=== PATIENT | female | born 1960 | race Caucasian/White ===

== ENCOUNTER 2019-01-02 06:42 | Inpatient (IN) ==
--- NOTE | 2018-12-12 13:22 | Anesthesiology Consultation ---
Date of Service December 12, 2018 Assessment & Plan (1) Encounter for pre-operative examination: Patient s/p vagal nerve stimulator/replacement for refractory depression ([facility]; patient advised to bring remote AM DOS; Juan Jose Goldberg/OR made aware). Patient has had subsequent hoarseness since [place] [facility] [place] has been evaluated by ENT; patient diagnosed with left unilateral vocal cord paralysis. Per preop CXR: "Battery pack of the left chest is noted with single lead projecting about the left medial upper chest." Discussed with Dr. De Jesus- nothing further from our perspective regarding this prior to surgery. Juan Jose Goldberg spoke with [facility] who recommended patient followup with provider that monitors VNS after surgery (within few weeks following s urgery) to ensure VNS working properly post-op (left message with patient to make them aware). ENT: 12/25/18: Left vocal cord paralysis after vagal nerve stimulator [re]placement. Options of observation vs. vocal cord injection/medialization with prolaryn gel (temporary) as options. "She is not yet 1 yr out from the onset of symptoms. Thus, there is a small chance the nerve may recover spontaneously." Patient considering vocal cord injection- ENT aware of upcoming TKA and recommends waiting until after TKA for vocal cord injections. PCP: 11/14/18: "She is able to perform adequate amount of METs without cardiac symptoms. She is medically optimized for surgery and requires no further workup. Chart Review Chart Review: Acceptable Risk for Surgery and Patient seen in Pre Admission Testing Teaching & Discussion Pre-Anesthesia Teaching/Discussion Notes: Instructed NPO after midnight before surgery,except medications with 15 cc of water. Medication instructions pro vided according to the PAT guidelines. History Surgery Operation Date: 01/02/19 09:25 Proposed Procedures p Right Total Knee Arthroplasty - Jurgen Howard MD Height/Weight Height: 5 ft 6 in Weight: 102.4 kg Allergies Allergy/AdvReac Type Severity Reaction Status Date / Time morphine Allergy Severe PRURITIS Verified 01/02/19 07:48 Medications Home Medications Medication Instructions Recorded Confirmed Last Taken aripiprazole 5 mg PO HS 12/12/18 01/02/19 01/01/19 19:00 estradiol 2 mg PO QAM 12/12/18 01/02/19 01/02/19 05:00 glucos sul 1APm-zho-bdpnv-C-Mn 2 cap PO QAM 12/12/18 01/02/19 12/19/18 07:00 [Glucosamine Chondroitin] levothyroxine 100 mcg PO QAM 12/12/18 01/02/19 01/02/19 05:00 lorazepam 2 mg PO HS 12/12/18 01/02/19 01/01/19 19:00 multivitamin 1 tab PO QAM 12/12/18 01/02/19 01/01/19 07:00 olanzapine 5 mg PO HS 12/12/18 01/02/19 01/01/19 19:00 olanzapine 20 mg PO HS 12/12/18 01/02/19 01/01/19 19:00 omega 5-ojo-goh-fish oil [Fish Oil] 2 cap PO QAM 12/12/18 01/02/19 12/19/18 07:00 simvastatin 40 mg PO 12/12/18 01/02/19 01/01/19 19:00 venlafaxine 450 mg PO QA 12/12/18 01/02/19 01/02/19 05:00 Active Medications Generic Name Dose Route Start Last Admin Trade Name Freq PRN Reason Stop Dose Admin Acetaminophen 1,000 mg 01/02/19 06:00 01/02/19 08:09 Tylenol PO 01/02/19 18:00 1,000 mg PREOP LEONOR Administration Celecoxib 200 mg 01/02/19 06:00 01/02/19 08:09 Celebrex PO 01/02/19 18:00 200 mg PREOP LEONOR Administration Dexamethasone 8 mg 01/02/19 06:00 01/02/19 08:08 Decadron PO 01/02/19 18:00 8 mg PREOP LEONOR Administration Famotidine 20 mg 01/02/19 06:00 01/02/19 08:09 Pepcid PO 01/02/19 18:00 20 mg PREOP LEONOR Administration Gabapentin 600 mg 01/02/19 06:00 01/02/19 08:08 Neurontin PO 01/02/19 18:00 600 mg PREOP LEONOR Administration Lactated Ringer's 1,000 mls @ 15 mls/hr 01/02/19 06:00 01/02/19 08:15 Lr IV 01/02/19 18:00 15 mls/hr .Q24H LEONOR Administration Metoclopramide HCl 10 mg 01/02/19 06:00 01/02/19 08:09 Reglan PO 01/02/19 18:00 10 mg PREOP LEONOR Administration Past Medical History Medical History Anxiety Depression H/O SUICIDAL ATTEMPT= NO CURRENT/RECENT ISSUES Hyperlipidemia Hypothyroidism Osteoarthritis CKD (chronic kidney disease) STAGE III History of blood transfusion INFANCY Obesity Exercise / Class Metabolic Activity II 4-5 Yardwork/Stairs/Walk up hill Past Family History Family History Other No pertinent family history Past Surgical History Surgical History H/O: hysterectomy WITH BSO History of tonsillectomy S/P placement of VNS (vagus nerve stimulation) device REPLAC[place]= [place] [facility] [place]) Past Anesthesia History No Family Hx of Anesthesia Complications and Other Patient has had hoarseness since vagal nerve stimulator replacement for depression 06[place]2018 [place] [facility] [place] Patient states she was seen by ENT and found to have unilateral left vocal cord paralysis s/p VNS placement. History of PONV No Hx of PONV and No Hx of Motion Sickness Social History Smoking Status: Former smoker tobacco type: cigarettes Do You Dip or Chew Tobacco: No Smoking End Date: QUIT 3 YEARS AGO; HX 1 PPD X 25 YEARS Hx Alcohol Use: No Hx Substance Use: No substance use type: does not use Review of Systems Patient denies chest pain, shortness of breath, dyspnea on exertion, reflux, cough, wheezing, palpitations. Physical Exam Vital Signs Last Vital Signs Temp 36.6 C 01/02/19 07:36 Pulse 64 01/02/19 07:36 Resp 18 01/02/19 07:36 BP 115/59 L 01/02/19 07:36 Pulse Ox 96 01/02/19 07:36 VITALS BP 122/79 P 76 TEMP 97.5 SP02 97%RA RESP 16 PHYSICAL Full neck and c-spine range of motion. Full TMJ range of motion. TMD 3 finger breaths Mallampati Score 1 Dentition: intact Lungs: clear throughout to auscultation Cardiac: regular rate and rhythm, no murmurs noted Spine: normal Carotid arteries: negative bruit Extremities: no edema Scar over left upper chest/left collarbone (likely 2/2 generator from vagal nerve stimulator) Testing Electrocardiogram Date: 11/14/18 NSR at 72bpm. Low voltage QRS. Chest X-Ray Date: 12/12/18 Findings: + NAD Battery pack of the left chest is noted with single lead projecting about the left medial upper chest. Laboratory Results 12/12/18 13:42 PT 11.1 Seconds (9.0-12.0) 12/12/18 13:42 INR 1.1 (0.9-1.1) 12/12/18 13:42 APTT 26.5 Seconds (21.0-31.0) 12/12/18 13:42 5.4 % (4.5-5.6) 12/12/18 13:42 Yellow 12/12/18 13:42 Clear (Clear) 12/12/18 13:42 5.0 (4.5-7.5) 12/12/18 13:42 Ur Specific Brandon 1.016 (1.000-1.030) 12/12/18 13:42 Negative (Negative) 12/12/18 13:42 Negative (Negative) 12/12/18 13:42 Negative (Negative) 12/12/18 13:42 Negative (Negative) 12/12/18 13:42 Ur Leukocyte Esterase Negative (Negative) 12/12/18 13:42 Blood Type B Positive 12/12/18 13:42 Antibody Screen NEGATIVE 12/12/18 13:42 11/14/18 SODIUM 143 POTASSIUM 4.5 CHLORIDE 105 CO2 24 BUN 16 CREATININE 1.0 GLUCOSE 100 Due to header error, following labs header labels were missin12/12/18 UA negative HGBA1C 5.4%
--- NOTE | 2018-12-12 13:36 | PAT Medication Instructions ---
Medication Instructions Date of Service December 12, 2018 Home Medications aripiprazole 5 mg PO HS estradiol 2 mg PO QAM glucos sul 5BVq-kvh-czanc-C-Mn 2 cap PO QAM levothyroxine 100 mcg PO QAM lorazepam 2 mg PO HS multivitamin 1 tab PO QAM olanzapine 5 mg PO HS olanzapine 20 mg PO HS omega 7-wim-tum-fish oil [Fish Oil] 2 cap PO QAM simvastatin 40 mg PO HS venlafaxine 450 mg PO QAM ASK your surgeon for instructions estradiol 2 mg PO QAM STOP taking 2 weeks before surgery (or as soon as possible if surgery is within 2 weeks) glucos sul 9PCk-rgn-wmlxl-C-Mn 2 cap PO QAM omega 7-lhs-pjh-fish oil [Fish Oil] 2 cap PO QAM DO NOT take the morning of surgery multivitamin 1 tab PO QAM Take morning of surgery With a small sip of water, OTHERWISE NOTHING TO EAT OR DRINK AFTER MIDNIGHT: levothyroxine 100 mcg PO QAM venlafaxine 450 mg PO QAM Take evening before surgery aripiprazole 5 mg PO HS lorazepam 2 mg PO HS olanzapine 5 mg PO HS olanzapine 20 mg PO HS simvastatin 40 mg PO HS Other Notes If you have any questions please call us at [phone] or [phone] or [phone] or [phone]
--- NOTE | 2018-12-12 14:18 | XRay Report ---
XR chest Pre-admission PA/Lat HISTORY: 58 years-old Female pat preoperative exam. No acute chest complaints COMPARISON: Chest radiograph 01/06/2009 TECHNIQUE: PA and lateral views of the chest FINDINGS: The cardiomediastinal and hilar silhouettes are within normal limits. Battery pack of the left chest is noted with single lead projecting about the left medial upper chest. No pneumothorax, pleural effu karen, focal airspace consolidation or overt pulmonary edema. Degenerative changes of the shoulders an d spine. IMPRESSION: No acute process. The above report was generated using voice recognition software. It may contain grammatical, syntax o r spelling errors. Electronically signed by: Yonathan Chiu M.D. 12/12/2018 2:17 PM
[2018-12-12 14:28] LABS: Estimated Average Glucose 108 mg/dl; Hemoglobin A1C 5.4 % (4.5-5.6)
[2018-12-12 14:29] LABS: Appearance Urine Clear (Clear); Basophils # (auto) 0.02 K/uL (0-0.2); Basophils % (auto) 0.4 %; Bilirubin Urine Negative (Negative); Blood Urine Negative (Negative); Color Urine Yellow; Eosinophils # (auto) 0.09 K/uL (0-0.5); Eosinophils % (auto) 1.7 %; Glucose Urine UA Negative (Negative); Hematocrit (blood only) 39.1 % (37-47); Hemoglobin 13.9 g/dL (12.0-16.0); Immature Granulocytes # (auto) 0.01 K/uL (0.00-0.02); Immature Granulocytes % (auto) 0.2 %; Ketones Urine Negative (Negative); Leukocyte Esterase Urine Negative (Negative); Lymphocytes # (auto) 2.05 K/uL (1.2-3.4); Lymphocytes % (auto) 39.2 %; Mean Corpuscular Hgb Conc 35.5 g/dL (32-36); Mean Corpuscular Volume 88.5 fL (80-100); Mean Platelet Volume 9.7 fL (7.4-10.4); Monocytes # (auto) 0.42 K/uL (0.11-0.59); Neutrophils # (auto) 2.64 K/uL (1.4-6.5); Neutrophils % (auto) 50.5 %; Nitrite Urine Negative (Negative); Platelet Count 308 K/uL (130-400); Protein Urine Negative (Negative); RDW Coefficient of Variation 12.1 % (11.5-14.5); RDW Standard Deviation 39.1 fL (36.4-46.3); Red Blood Count 4.42 M/uL (4.2-5.4); Specific Gravity Urine 1.016 (1.000-1.030); Urobilinogen Urine Negative (Negative); White Blood Count 5.23 K/uL (4.8-10.8)
[2018-12-12 14:37] LABS: INR 1.1 (0.9-1.1); Partial Thromboplastin Time 26.5 Seconds (21.0-31.0); Prothrombin Time 11.1 Seconds (9.0-12.0)
--- NOTE | 2018-12-31 21:20 | History & Physical Report ---
Date of Service December 31, 2018 Assessment & Plan (1) Primary osteoarthritis of right knee: Patient has significant osteoarthritis in her knee. She has significant pain and dysfunction with normal daily activities. She has failed conservative measures as above. Treatment options were discussing you would like to proceed with right total knee arthroplasty. Risks, benefits, and alternatives to surgery including but not limited to infection, DVT pain, stiffness, need for revision surgery, damage to blood vessels, damaged nerves, PE, , we're discuss with the patient and they wish to proceed all questions were answered. Will plan on aspirin 81 mg bid for 30 days postoperatively for DVT prophylaxis. Plans will be for home with plans for outpatient physical therapy upon discharge from the hospital. She will follow up in the office postoperatively. History of Present Illness Chief Complaint: Right knee pain Primary Care Provider: Madelaine Betts PA-C Patient is a 58 year old female with PMHx significant for anxiety, hypothryroidism, CKDIII who has a long standing history of right knee pain. She is having difficulty completing normal daily activities due to her pain. She has failed conservative measures including cortisone injections and anti- inflammatories. She is a previous patient of Dr. Rodriguez. She would like to proceed with right knee replacement. Patient denies headaches, sweats, fevers, chills, double vision, blurred vision, cough, sore throat, dysphagia, chest pain, sob, wheezing, n/v/d/c, numbness, tingling, fatigue, urinary symptoms, mood disorders. ROS positive for right knee pain and stiffness. Allergies Allergy/AdvReac Type Severity Reaction Status Date / Time morphine Allergy Severe PRURITIS Unverified 09/10/09 04:03 Home Medications Home Medications Medication Instructions Recorded Confirmed Type aripiprazole 5 mg PO HS 12/12/18 12/12/18 History estradiol 2 mg PO QAM 12/12/18 12/12/18 History glucos sul 3NKh-qsv-uhjim-C-Mn 2 cap PO QAM 12/12/18 12/12/18 History [Glucosamine Chondroitin] levothyroxine 100 mcg PO QAM 12/12/18 12/12/18 History lorazepam 2 mg PO HS 12/12/18 12/12/18 History multivitamin 1 tab PO QAM 12/12/18 12/12/18 History olanzapine 5 mg PO HS 12/12/18 12/12/18 History olanzapine 20 mg PO HS 12/12/18 12/12/18 History omega 4-ouh-xio-fish oil [Fish Oil] 2 cap PO QAM 12/12/18 12/12/18 History simvastatin 40 mg PO HS 12/12/18 12/12/18 History venlafaxine 450 mg PO QAM 12/12/18 12/12/18 History Past Med/Surg History Medical History Anxiety CKD (chronic kidney disease) STAGE III Depression H/O SUICIDAL ATTEMPT= NO CURRENT/RECENT ISSUES History of blood transfusion INFANCY Hyperlipidemia Hypothyroidism Obesity Osteoarthritis Surgical History H/O: hysterectomy WITH BSO History of tonsillectomy S/P placement of VNS (vagus nerve stimulation) device REPLACEMENT= 06/2018 AT [facility] [place] (FOR DEPRESSION) Family History Other No pertinent family history Social History Preferred Language: Persian Communication Ability: Effective Telecommunication Systems Designer Required: No Beliefs That Will Affect Care: None Current Living Situation: Spouse and Family Other Information That Helps Us Care for You: No Feels Safe at Home: Yes Safety Concerns: Feels Safe At This Time Smoking Status: Former smoker Tobacco Type: cigarettes Do You Dip or Chew Tobacco: No Smoking End Date: QUIT 3 YEARS AGO; HX 1 PPD X 25 YEARS Second Hand Exposure: Yes Tobacco Cessation Education Requested by Patient: No Hx Alcohol Use: No Hx Substance Use: No Review of Systems All systems reviewed & are unremarkable except as noted in HPI & below Physical Exam Constitutional: well developed and well nourished; no acute distress Eyes: PERRL, conjunctivae normal, anicteric sclerae ENMT: external ear and nose normal, oropharynx normal Neck: trachea midline, no thyromegaly Respiratory: normal respiratory effort, lungs clear to auscultation Cardiovascular: RRR, no murmur, no edema Musculoskeletal: Right knee-ROM 0-130, mild effusion, tenderness medial joint line, crepitus with ROM, stable to valgus and varus stress tests. Skin: no rashes, warm and dry Neurologic: patellar DTR's 2+ bilat, sensation intact Psychiatric: A+Ox3, euthymic affect Results & Data Laboratory Results Lab Results 12/12/18 12/12/18 12/12/18 Range/Units 13:42 13:42 13:42 WBC 5.23 (4.8-10.8) K/uL RBC 4.42 (4.2-5.4) M/uL Hgb 13.9 (12.0-16.0) g/dL Hct 39.1 (37-47) % MCV 88.5 (80-100) fL MCH 31.4 (25-34) pg MCHC 35.5 (32-36) g/dL RDW Std Deviation 39.1 (36.4-46.3) fL RDW Coeff of Nicky 12.1 (11.5-14.5) % Plt Count 308 (130-400) K/uL MPV 9.7 (7.4-10.4) fL Immature Gran % (Auto) 0.2 % Neut % (Auto) 50.5 % Lymph % (Auto) 39.2 % Stone % (Auto) 8.0 % Eos % (Auto) 1.7 % Baso % (Auto) 0.4 % Immature Gran # (Auto) 0.01 (0.00-0.02) K/uL Neut # (Auto) 2.64 (1.4-6.5) K/uL Lymph # (Auto) 2.05 (1.2-3.4) K/uL Stone # (Auto) 0.42 (0.11-0.59) K/uL Eos # (Auto) 0.09 (0-0.5) K/uL Baso # (Auto) 0.02 (0-0.2) K/uL PT 11.1 (9.0-12.0) Seconds INR 1.1 (0.9-1.1) APTT 26.5 (21.0-31.0) Seconds PTT Ratio 1.0 Estimat Average Glucose mg/dl Hemoglobin A1c (4.5-5.6) % Albumin 3.8 (3.4-5.0) gm/dl Urine Color Urine Appearance (Clear) Urine pH (4.5-7.5) Ur Specific Gregory (1.000-1.030) Urine Protein (Negative) Urine Glucose (UA) (Negative) Urine Ketones (Negative) Urine Blood (Negative) Urine Nitrite (Negative) Urine Bilirubin (Negative) Urine Urobilinogen (Negative) Ur Leukocyte Esterase (Negative) Blood Type Antibody Screen 12/12/18 12/12/18 12/12/18 Range/Units 13:42 13:42 13:42 WBC (4.8-10.8) K/uL RBC (4.2-5.4) M/uL Hgb (12.0-16.0) g/dL Hct (37-47) % MCV (80-100) fL MCH (25-34) pg MCHC (32-36) g/dL RDW Std Deviation (36.4-46.3) fL RDW Coeff of Nicky (11.5-14.5) % Plt Count (130-400) K/uL MPV (7.4-10.4) fL Immature Gran % (Auto) % Neut % (Auto) % Lymph % (Auto) % Stone % (Auto) % Eos % (Auto) % Baso % (Auto) % Immature Gran # (Auto) (0.00-0.02) K/uL Neut # (Auto) (1.4-6.5) K/uL Lymph # (Auto) (1.2-3.4) K/uL Stone # (Auto) (0.11-0.59) K/uL Eos # (Auto) (0-0.5) K/uL Baso # (Auto) (0-0.2) K/uL PT (9.0-12.0) Seconds INR (0.9-1.1) APTT (21.0-31.0) Seconds PTT Ratio Estimat Average Glucose 108 mg/dl Hemoglobin A1c 5.4 (4.5-5.6) % Albumin (3.4-5.0) gm/dl Urine Color Yellow Urine Appearance Clear (Clear) Urine pH 5.0 (4.5-7.5) Ur Specific Gregory 1.016 (1.000-1.030) Urine Protein Negative (Negative) Urine Glucose (UA) Negative (Negative) Urine Ketones Negative (Negative) Urine Blood Negative (Negative) Urine Nitrite Negative (Negative) Urine Bilirubin Negative (Negative) Urine Urobilinogen Negative (Negative) Ur Leukocyte Esterase Negative (Negative) Blood Type B Positive Antibody Screen NEGATIVE Diagnostic Findings Right knee radiographs: Bone on bone medial compartment with osteophyte formation medial femoral condyle and medial tibial plateaus, osteophyte formation patellofemoral joint.
[~2019-01-02 06:42] MED LIST: ACETAMINOPHEN 500 MG TAB PO SCH; BUPIVACAINE 0.5 % 5 MG/1 ML PF 10ML VIAL ONE; CEFAZOLIN 2000MG 2,000 MG/15 ML SYR IV SCH; CeleBREX 200 MG CAP PO SCH; EPINEPHrine INJ 1 MG/ML AMP ONE; FAMOTIDINE 20 MG TAB PO SCH; GABAPENTIN 300 MG x 2 PO SCH; LR 500ML BOLUS, THEN 15ML/HR IV SCH; METOCLOPRAMIDE HCL 10 MG TABLET PO SCH; ROPIVACAINE 0.5% 5 MG/ML 30 ML VIAL ONE; ROPIVACAINE 0.5% HCL/PF 150 MG, BUPIVACAINE 0.5% MPF 30 ML, EPINEPHrine 30MG/30ML (OR U... INFIL SCH; TRANEXAMIC ACID 1,000 MG **IV Intra-op IV SCH; TRANEXAMIC ACID 1,000 MG **IV Pre-op IV SCH; dexAMETHasone 4 MG TAB PO SCH
[2019-01-02] MEDS ORDERED: MIDAZOLAM HCL 1 MG/ML 2ML VIAL ONE (07:38)
[2019-01-02] MEDS ORDERED: fentaNYL citrate 100 MCG/2 ML VIAL ONE (07:38)
--- NOTE | 2019-01-02 07:54 | History & Physical Bridge Note ---
Date of Service January 02, 2019 History & Physical Bridge Note I have examined the patient, reviewed the History & Physical and in the interval since the performance of the History & Physical I have noted the following changes of clinical significance: no changes noted
[2019-01-02] MEDS ORDERED: ORTHO JOINT ANESTHETIC ONE (07:58)
[2019-01-02] MEDS ORDERED: POVIDONE-IODINE OP SOLN 30 ML BTL ONE (07:58)
[2019-01-02] MEDS ORDERED: BACITRACIN INJ 50,000 UNIT VIAL ONE (07:58)
[2019-01-02] MEDS ORDERED: PROPOFOL IV EMULSION 10 MG/ML 20 ML VIAL IV ONE (08:08)
[2019-01-02] MEDS ORDERED: LIDOCAINE HCL 2% 2 ML VIAL/AMP(20MG/ML) INFIL ONE (08:08)
[2019-01-02] MEDS ORDERED: ONDANSETRON INJ 2 MG/ML 2 ML VIAL IV PRN ×2 (08:09→12:46)
[2019-01-02] MEDS ORDERED: ePHEDrine sulfate 50 MG/ML AMP IV PRN (08:09)
[2019-01-02] MEDS ORDERED: PHENYLEPHRINE 100MCG/ML 5ML SYR IV PRN (08:09)
[2019-01-02] MEDS ORDERED: ATROPINE SULFATE 0.1 MG/ML 10ML SYR IV PRN (08:09)
[2019-01-02] MEDS ORDERED: fentaNYL citrate 100 MCG/2 ML VIAL IV PRN (08:09)
[2019-01-02] MEDS ORDERED: LABETALOL HCL IV 5 MG/ML 20ML IV PRN (08:09)
[2019-01-02] MEDS ORDERED: ONDANSETRON INJ 2 MG/ML 2 ML VIAL ONE (08:10)
--- NOTE | 2019-01-02 08:34 | Anesthesiology Consultation ---
Date of Service January 02, 2019 Patient s/p vagal nerve stimulator/replacement for refractory depression ([facility]; patient advised to bring remote AM DOS; Juan Jose Goldberg/OR made aware). Patient has had subsequent hoarseness since VNS replacement at 06/2018 at [facility] [place]. She has been evaluated by ENT; patient diagnosed with left unilateral vocal cord paralysis. Per preop CXR: "Battery pack of the left chest is noted with single lead projecting about the left medial upper chest." Discussed with Dr. De Jesus- nothing further from our perspective regarding this prior to surgery. Juan Jose Goldberg spoke with [facility] who recommended patient followup with provider that monitors VNS after surgery (within few weeks following surgery) to ensure VNS working properly post-op (left message with patient to make them aware). ENT: 12/25/18: Left vocal cord paralysis after vagal nerve stimulator [re]placement. Options of observation vs. vocal cord injection/medialization with prolaryn gel (temporary) as options. "She is not yet 1 yr out from the onset of symptoms. Thus, there is a small chance the nerve may recover spontaneously." Patient considering vocal cord injection- ENT aware of upcoming TKA and recommends waiting until after TKA for vocal cord injections. PCP: 11/14/18: "She is able to perform adequate amount of METs without cardiac symptoms. She is medically optimized for surgery and requires no further workup. Chart Review Chart Review: Acceptable Risk for Surgery and Patient seen in Pre Admission Testing Teaching & Discussion Pre-Anesthesia Teaching/Discussion Notes: Instructed NPO after midnight before surgery,except medications with 15 cc of water. Medication instructions provided according to the PAT guidelines. Assessment & Plan (1) Encounter for pre-operative examination: Chart Review Chart Review: Acceptable Risk for Surgery and Patient seen in Pre Admission Testing Consults Requested none History Surgery Operation Date: 01/02/19 09:25 Proposed Procedures p Right Total Knee Arthroplasty - Jurgen Howard MD Height/Weight Height: 5 ft 6 in Weight: 103.192 kg Allergies Allergy/AdvReac Type Severity Reaction Status Date / Time morphine Allergy Severe PRURITIS Verified 01/02/19 07:48 Medications Home Medications Medication Instructions Recorded Confirmed Last Taken aripiprazole 5 mg PO HS 12/12/18 01/02/19 01/01/19 19:00 estradiol 2 mg PO QAM 12/12/18 01/02/19 01/02/19 05:00 glucos sul 8OGy-ryx-xfsjf-C-Mn 2 cap PO QAM 12/12/18 01/02/19 12/19/18 07:00 [Glucosamine Chondroitin] levothyroxine 100 mcg PO QAM 12/12/18 01/02/19 01/02/19 05:00 lorazepam 2 mg PO HS 12/12/18 01/02/19 01/01/19 19:00 multivitamin 1 tab PO QAM 12/12/18 01/02/19 01/01/19 07:00 olanzapine 5 mg PO HS 12/12/18 01/02/19 01/01/19 19:00 olanzapine 20 mg PO HS 12/12/18 01/02/19 01/01/19 19:00 omega 1-fok-xuj-fish oil [Fish Oil] 2 cap PO QAM 12/12/18 01/02/19 12/19/18 07:00 simvastatin 40 mg PO HS 12/12/18 01/02/19 01/01/19 19:00 venlafaxine 450 mg PO QA 12/12/18 01/02/19 01/02/19 05:00 Active Medications Generic Name Dose Route Start Last Admin Trade Name Freq PRN Reason Stop Dose Admin Acetaminophen 1,000 mg 01/02/19 06:00 01/02/19 08:09 Tylenol PO 01/02/19 18:00 1,000 mg PREOP LEONOR Administration Celecoxib 200 mg 01/02/19 06:00 01/02/19 08:09 Celebrex PO 01/02/19 18:00 200 mg PREOP LEONOR Administration Dexamethasone 8 mg 01/02/19 06:00 01/02/19 08:08 Decadron PO 01/02/19 18:00 8 mg PREOP LEONOR Administration Famotidine 20 mg 01/02/19 06:00 01/02/19 08:09 Pepcid PO 01/02/19 18:00 20 mg PREOP LEONOR Administration Gabapentin 600 mg 01/02/19 06:00 01/02/19 08:08 Neurontin PO 01/02/19 18:00 600 mg PREOP LEONOR Administration Lactated Ringer's 1,000 mls @ 15 mls/hr 01/02/19 06:00 01/02/19 08:15 Lr IV 01/02/19 18:00 15 mls/hr .Q24H LEONOR Administration Metoclopramide HCl 10 mg 01/02/19 06:00 01/02/19 08:09 Reglan PO 01/02/19 18:00 10 mg PREOP LEONOR Administration NPO Date Last Intake of Fluids: 01/01/19 Time Last Intake of Fluids: 20:30 Last Intake of Fluids Comment: sip of water 0500 w/meds Date Last Intake of Solids: 01/01/19 Time Last Intake of Solids: 20:30 Past Medical History Medical History Anxiety Depression H/O SUICIDAL ATTEMPT= NO CURRENT/RECENT ISSUES Hyperlipidemia Hypothyroidism Osteoarthritis CKD (chronic kidney disease) STAGE III History of blood transfusion INFANCY Obesity Past Family History Family History Other No pertinent family history Past Surgical History Surgical History H/O: hysterectomy WITH BSO History of tonsillectomy S/P placement of VNS (vagus nerve stimulation) device REPLACEMENT= 06/2018 AT [facility] [place] (FOR DEPRESSION) Past Anesthesia History Patient has had hoarseness since vagal nerve stimulator replacement for depression 06/2018 at [facility] [place]. Patient states she was seen by ENT and found to have unilateral left vocal cord paralysis s/p VNS placement. Social History Smoking Status: Former smoker tobacco type: cigarettes Do You Dip or Chew Tobacco: No Smoking End Date: QUIT 3 YEARS AGO; HX 1 PPD X 25 YEARS Hx Alcohol Use: No Hx Substance Use: No substance use type: does not use Physical Exam Vital Signs Last Vital Signs Temp 36.6 C 01/02/19 07:36 Pulse 64 01/02/19 07:36 Resp 18 01/02/19 07:36 BP 115/59 L 01/02/19 07:36 Pulse Ox 96 01/02/19 07:36 Testing Electrocardiogram Date: 11/14/18 NSR at 72bpm. Low voltage QRS. Chest X-Ray Date: 12/12/18 Findings: + NAD Battery pack of the left chest is noted with single lead projecting about the left medial upper chest.
[2019-01-02] MEDS ORDERED: TRANEXAMIC ACID 1,000 MG in 0.9 % SODIUM CHLORIDE 100 ML IV STA (08:43)
[2019-01-02] MEDS ORDERED: TRANEXAMIC ACID 1,000 MG in 0.9 % SODIUM CHLORIDE 100 ML IV SCH (08:45)
[2019-01-02] MEDS ORDERED: ePHEDrine sulfate 50 MG/ML AMP ONE (09:10)
[2019-01-02] MEDS ORDERED: WATER, STERILE FOR INJ 10 ML VIAL ONE (09:10)
[2019-01-02] MEDS ORDERED: PHENYLEPHRINE HCL 10 MG/ML VIAL ONE (09:44)
--- NOTE | 2019-01-02 10:27 | Operative Report ---
Post Operative Report Pre & Post Diagnosis Operation Date: 01/02/19 09:25 Pre-Op Diagnosis: Right Knee Osteoarthritis Post-Op Diagnosis: Right Knee Osteoarthritis Procedure Operation Date: 01/02/19 09:25 Actual Procedures p Right Total Knee Arthroplasty(Right) - Jurgen Howard MD Surgeon Jurgen Howard MD [employer] Rush Segal PA-C Estimated Blood Loss 20 Findings Consistent with Post-Op Diagnosis Specimens Bone and tissue Drains 2 Hemovac Anesthesia Type Spinal MAC Complications none Disposition Accompanied Patient To Recovery: No Disposition: Recovery Room Indications The patient is a 58-year-old female long-standing arthritic change of the right knee. She is [id number] in the medial compartment. She is failed conservative measures including injection, anti-inflammatories, rehab. She wishes to proceed with a right total knee arthroplasty. Description of Procedure Risks benefits and alternatives of surgery including but not limited to infection, DVT, pain, stiffness, need for surgery, damage to blood vessels, damage to nerves or risks of anesthesia were discussed with the patient and they wished to proceed. The patient was identified and the laterality was confirmed and marked. They received a preoperative antibiotic as well as a spinal anesthetic and an abductor canal block. A well-padded tourniquet was applied and then the limb was prepped and draped in standard manner with ChloraPrep. The limb was exsanguinated and the tourniquet was inflated. I made a standard anterior incision. I sharply incised the skin then utilized Bovie electrocautery to achieve hemostasis. I made a medial parapatellar arthrotomy and mobilized the patella laterally. I then excised the anterior horns of the medial and lateral meniscus as well as the infrapatellar fat pad. I elevated a portion of the MCL off of the tibia. I then drilled a alignment ken into the femur. I placed my valgus alignment cutting guide into position and pinned for my distal femoral resection. I then made my distal femoral resection. I then utilized a posterior reference. I initially measured for a size 5 but placing the cutting block onto the knee it appeared to be too wide. I therefore downsized to a size 4. This gave us a much better fit. I then pinned into place the 5 in 1 femoral cutting guide. I made my anterior, posterior and chamfer cuts. I then excised the cruciates and the remaining portions of the menisci. I then positioned an extra medullary tibial cutting guide pinned this into place MMI tibial resection. I then pinned into place the tibial plate a utilizing alignment ken to confirm rotation. I then cut for the post. Utilizing a lamina casting coordinator and I then removed posterior osteophytes off the femur. I then placed a trial femur into position and cut for the trochlear component. I then sequentially trialed to size the polyethylene until there was good soft tissue balancing and range of motion. I then prepared the patella with a freehand cut utilizing sagittal saw. I sized and drilled for the patella. There was good tracking to the patella no lateral release was needed. She was still tight in extension compared to flexion. I did placed the distal femoral cutting guide back into position and took an additional 2 mm of bone. I then recut for my chamfer cuts and reposition the femur. I again checked the tracking the patella and everything looked good. All the trial components were removed. The deep tissues were anesthetized with an ortho mix solution. Then with Simplex HV with gentamicin cement, I cemented my definitive components. Definitive components, [employer] Umu 2: Femur 4 Tibia 4 Poly 10 Patella 29 oval A betadine soak was performed. A deep drain was placed. The arthrotomy was closed with interrupted #1 Vicryl suture subcutaneous tissue was closed with interrupted 2-0 Vicryl suture. The skin was closed with with laura. An Acticoat and Eli dressing were placed. Sterile dressings were applied. All needle and sponge counts were correct at the end of the procedure patient was transferred to the PACU in stable condition without apparent complication. The PA-C was necessary for assistance with procedure for assistance in positioning, prepping, draping, retraction and closure. I attest to the content of the Intraoperative Record and any orders documented therein. Any exceptions are noted below.
--- NOTE | 2019-01-02 11:32 | Anesthesiology Progress Note ---
Date of Service January 02, 2019 Anesthesia Post Procedure Vital Signs Vital Signs: Temp Pulse Pulse Resp BP Pulse Ox 01/02/19 11:25 85 16 108/56 L 99 01/02/19 11:15 83 16 110/44 L 100 01/02/19 11:05 84 19 93/50 L 100 01/02/19 10:56 36.6 C 100 H 16 89/57 L 96 01/02/19 07:36 36.6 C 64 18 115/59 L 96 Pain Intensity Right Knee: Pain Intensity: 0 Transfer of Care Handoff Completed per policy Notes Mental Status: alert / awake / arousable Patient Amnestic to Procedure: Yes Nausea / Vomiting: adequately controlled Pain: adequately controlled Airway Patency, RR, SpO2: stable & adequate BP & HR: stable & adequate Hydration State: stable & adequate Neuraxial Anesthesia: was administered and sensory block is resolving Anesthetic Complications: no major complications apparent and Pt Satisfied with anesthetic care
--- NOTE | 2019-01-02 12:03 | XRay Report ---
XR knee RT 2V routine CLINICAL HISTORY: Postoperative evaluation. COMPARISON: None FINDINGS: Alignment of the total right knee arthroplasty is anatomic. There is no fracture or unexpe cted radiopaque foreign body. Drains and skin laura are present. IMPRESSION: Expected findings following total right knee arthroplasty. Electronically signed by: Rob Angela M.D. 01/02/2019 12:02 PM
[2019-01-02] MEDS ORDERED: BISACODYL 10 MG SUPP PR PRN (12:46)
[2019-01-02] MEDS ORDERED: ALUMINUM/MAGNESIUM SUSP 30 ML UDC PO PRN (12:46)
[2019-01-02] MEDS ORDERED: NALOXONE HCL 0.4 MG/1 ML VIAL/CARP IV PRN (12:46)
[2019-01-02] MEDS ORDERED: HYDROmorphone INJ 0.5 MG/0.5 ML SYR IV PRN (12:46)
[2019-01-02] MEDS ORDERED: MAGNESIUM HYDROXIDE SUSP 30 ML UDC PO PRN (12:46)
[2019-01-02] MEDS: ACETAMINOPHEN 500 MG TAB PO SCH ×2 (13:28→22:10)
[2019-01-02] MEDS: SODIUM CHLORIDE 0.9% 1000ML 1,000 ML IV SCH ×2 (13:29→23:18)
[2019-01-02] MEDS: CEFAZOLIN 2000MG 2,000 MG/15 ML SYR IV SCH (17:48)
[2019-01-02] MEDS: OXYCODONE HCL IR 5 MG TAB (IMMEDIATE RELEASE) PO PRN (20:40)
[2019-01-02] MEDS: DOCUSATE SODIUM 100 MG CAP PO SCH (20:42)
[2019-01-02] MEDS: ASPIRIN 81 MG ECTAB PO SCH (20:43)
[2019-01-02] MEDS ORDERED: OLANZapine 5 MG TABLET PO SCH (21:00)
[2019-01-02] MEDS ORDERED: OLANZapine 20 MG TABLET PO SCH (21:00)
[2019-01-02] MEDS ORDERED: LORazepam 1 MG TAB PO SCH (21:00)
[2019-01-02] MEDS ORDERED: SENNA 8.6 MG TAB PO SCH (21:00)
[2019-01-02] MEDS ORDERED: ARIPiprazole 5 MG TAB PO SCH (21:00)
[2019-01-02] MEDS ORDERED: SIMVASTATIN 40 MG TAB PO SCH (21:00)
[2019-01-03] MEDS: CEFAZOLIN 2000MG 2,000 MG/15 ML SYR IV SCH (01:11)
[2019-01-03 05:49] LABS: Hematocrit (blood only) 34.9 % (37-47); Hemoglobin 12.1 g/dL (12.0-16.0); Mean Corpuscular Hgb Conc 34.7 g/dL (32-36); Mean Corpuscular Volume 90.4 fL (80-100); Mean Platelet Volume 10.1 fL (7.4-10.4); Platelet Count 249 K/uL (130-400); RDW Coefficient of Variation 12.5 % (11.5-14.5); RDW Standard Deviation 40.7 fL (36.4-46.3); Red Blood Count 3.86 M/uL (4.2-5.4); White Blood Count 12.73 K/uL (4.8-10.8)
[2019-01-03] MEDS ORDERED: TRANEXAMIC ACID 1,000 MG **IV Pre-op IV SCH (06:00)
[2019-01-03 06:30] LABS: Calcium 8.3 mg/dl (8.5-10.1); Creatinine Clr Calc Pharmacy 67.8 ml/min; Est GFR (African American) 65.3; Est GFR (Non-African American) 56.4; Potassium 4.4 mmol/L (3.5-5.1)
[2019-01-03] MEDS ORDERED: ACETAMINOPHEN 500 MG TAB PO SCH ×2 (06:30→08:15)
[2019-01-03] MEDS ORDERED: LEVOTHYROXINE SODIUM 100 MCG TABLET PO SCH (06:30)
[2019-01-03] MEDS ORDERED: TRANEXAMIC ACID 1,000 MG **IV Intra-op IV SCH (06:30)
--- NOTE | 2019-01-03 07:14 | Orthopedic Progress Note ---
Date of Service January 03, 2019 Assessment & Plan (1) Primary osteoarthritis of right knee: POD#1 right TKA -Pain management -PT/OT -DVT prophylaxis-ASA 81mg BID x 30 days -D/C planning-home with plans on outpatient PT today as long as PT goes well. Subjective Patient is POD#1 from right TKA. She is doing well this morning, does have some pain but is well controlled. She has no other complaints. She would like to go home today. Review of Systems Review of Systems: All systems reviewed & are unremarkable except as noted in HPI & below Physical Exam Physical Exam: Dressing is c/d/i, hemovac in place. Toes are mobile. No calf tenderness. Sensation and n/v status are intact. Results & Data Vital Signs (Past 12 Hours) Vital Signs Temp Pulse Pulse Resp BP Pulse Ox 01/03/19 03:10 36.6 C 69 14 103/65 94 01/02/19 23:14 36.4 C L 58 L 14 103/64 90 01/02/19 19:34 36.4 C L 80 16 94/55 L 95 Laboratory Results Lab Results 12/12/18 12/12/18 12/12/18 Range/Units 13:42 13:42 13:42 WBC 5.23 (4.8-10.8) K/uL RBC 4.42 (4.2-5.4) M/uL Hgb 13.9 (12.0-16.0) g/dL Hct 39.1 (37-47) % MCV 88.5 (80-100) fL MCH 31.4 (25-34) pg MCHC 35.5 (32-36) g/dL RDW Std Deviation 39.1 (36.4-46.3) fL RDW Coeff of Nicky 12.1 (11.5-14.5) % Plt Count 308 (130-400) K/uL MPV 9.7 (7.4-10.4) fL Immature Gran % (Auto) 0.2 % Neut % (Auto) 50.5 % Lymph % (Auto) 39.2 % [place] % (Auto) 8.0 % Eos % (Auto) 1.7 % Baso % (Auto) 0.4 % Immature Gran # (Auto) 0.01 (0.00-0.02) K/uL Neut # (Auto) 2.64 (1.4-6.5) K/uL Lymph # (Auto) 2.05 (1.2-3.4) K/uL [place] # (Auto) 0.42 (0.11-0.59) K/uL Eos # (Auto) 0.09 (0-0.5) K/uL Baso # (Auto) 0.02 (0-0.2) K/uL PT 11.1 (9.0-12.0) Seconds INR 1.1 (0.9-1.1) APTT 26.5 (21.0-31.0) Seconds PTT Ratio 1.0 Sodium (136-145) mmol/L Potassium (3.5-5.1) mmol/L Chloride (98-107) mmol/L Carbon Dioxide (21-32) mmol/L Anion Gap (3-11) BUN (7-18) mg/dl Creatinine (0.6-1.2) mg/dl Est Cr Clr Drug Dosing ml/min Est GFR ( Amer) Est GFR (Non-Af Amer) BUN/Creatinine Ratio (10-20) Glucose (70-99) mg/dl Estimat Average Glucose mg/dl Hemoglobin A1c (4.5-5.6) % Calcium (8.5-10.1) mg/dl Albumin 3.8 (3.4-5.0) gm/dl Specimen Hemolysis Urine Color Urine Appearance (Clear) Urine pH (4.5-7.5) Ur Specific [place] (1.000-1.030) Urine Protein (Negative) Urine Glucose (UA) (Negative) Urine Ketones (Negative) Urine Blood (Negative) Urine Nitrite (Negative) Urine Bilirubin (Negative) Urine Urobilinogen (Negative) Ur Leukocyte Esterase (Negative) Hepatitis C Ab Screen (Neg) Blood Type Antibody Screen 12/12/18 12/12/18 12/12/18 Range/Units 13:42 13:42 13:42 WBC (4.8-10.8) K/uL RBC (4.2-5.4) M/uL Hgb (12.0-16.0) g/dL Hct (37-47) % MCV (80-100) fL MCH (25-34) pg MCHC (32-36) g/dL RDW Std Deviation (36.4-46.3) fL RDW Coeff of Nicky (11.5-14.5) % Plt Count (130-400) K/uL MPV (7.4-10.4) fL Immature Gran % (Auto) % Neut % (Auto) % Lymph % (Auto) % [place] % (Auto) % Eos % (Auto) % Baso % (Auto) % Immature Gran # (Auto) (0.00-0.02) K/uL Neut # (Auto) (1.4-6.5) K/uL Lymph # (Auto) (1.2-3.4) K/uL [place] # (Auto) (0.11-0.59) K/uL Eos # (Auto) (0-0.5) K/uL Baso # (Auto) (0-0.2) K/uL PT (9.0-12.0) Seconds INR (0.9-1.1) APTT (21.0-31.0) Seconds PTT Ratio Sodium (136-145) mmol/L Potassium (3.5-5.1) mmol/L Chloride (98-107) mmol/L Carbon Dioxide (21-32) mmol/L Anion Gap (3-11) BUN (7-18) mg/dl Creatinine (0.6-1.2) mg/dl Est Cr Clr Drug Dosing ml/min Est GFR ( Amer) Est GFR (Non-Af Amer) BUN/Creatinine Ratio (10-20) Glucose (70-99) mg/dl Estimat Average Glucose 108 mg/dl Hemoglobin A1c 5.4 (4.5-5.6) % Calcium (8.5-10.1) mg/dl Albumin (3.4-5.0) gm/dl Specimen Hemolysis Urine Color Yellow Urine Appearance Clear (Clear) Urine pH 5.0 (4.5-7.5) Ur Specific [place] 1.016 (1.000-1.030) Urine Protein Negative (Negative) Urine Glucose (UA) Negative (Negative) Urine Ketones Negative (Negative) Urine Blood Negative (Negative) Urine Nitrite Negative (Negative) Urine Bilirubin Negative (Negative) Urine Urobilinogen Negative (Negative) Ur Leukocyte Esterase Negative (Negative) Hepatitis C Ab Screen (Neg) Blood Type B Positive Antibody Screen NEGATIVE 05/30/19 05/31/19 05/31/19 Range/Units 07:21 05:14 05:14 WBC 12.73 H (4.8-10.8) K/uL RBC 3.86 L (4.2-5.4) M/uL Hgb 12.1 (12.0-16.0) g/dL Hct 34.9 L (37-47) % MCV 90.4 (80-100) fL MCH 31.3 (25-34) pg MCHC 34.7 (32-36) g/dL RDW Std Deviation 40.7 (36.4-46.3) fL RDW Coeff of Nicky 12.5 (11.5-14.5) % Plt Count 249 (130-400) K/uL MPV 10.1 (7.4-10.4) fL Immature Gran % (Auto) % Neut % (Auto) % Lymph % (Auto) % [place] % (Auto) % Eos % (Auto) % Baso % (Auto) % Immature Gran # (Auto) (0.00-0.02) K/uL Neut # (Auto) (1.4-6.5) K/uL Lymph # (Auto) (1.2-3.4) K/uL [place] # (Auto) (0.11-0.59) K/uL Eos # (Auto) (0-0.5) K/uL Baso # (Auto) (0-0.2) K/uL PT (9.0-12.0) Seconds INR (0.9-1.1) APTT (21.0-31.0) Seconds PTT Ratio Sodium 141 (136-145) mmol/L Potassium 4.4 (3.5-5.1) mmol/L Chloride 111 H (98-107) mmol/L Carbon Dioxide 26 (21-32) mmol/L Anion Gap 4.0 (3-11) BUN 17 (7-18) mg/dl Creatinine 1.07 (0.6-1.2) mg/dl Est Cr Clr Drug Dosing 67.8 ml/min Est GFR ( Amer) 65.3 Est GFR (Non-Af Amer) 56.4 BUN/Creatinine Ratio 16.0 (10-20) Glucose 149 H (70-99) mg/dl Estimat Average Glucose mg/dl Hemoglobin A1c (4.5-5.6) % Calcium 8.3 L (8.5-10.1) mg/dl Albumin (3.4-5.0) gm/dl Specimen Hemolysis Urine Color Urine Appearance (Clear) Urine pH (4.5-7.5) Ur Specific [place] (1.000-1.030) Urine Protein (Negative) Urine Glucose (UA) (Negative) Urine Ketones (Negative) Urine Blood (Negative) Urine Nitrite (Negative) Urine Bilirubin (Negative) Urine Urobilinogen (Negative) Ur Leukocyte Esterase (Negative) Hepatitis C Ab Screen Neg (Neg) Blood Type Antibody Screen
[2019-01-03] MEDS: OXYCODONE HCL IR 5 MG TAB (IMMEDIATE RELEASE) PO PRN ×2 (07:35→13:46)
--- NOTE | 2019-01-03 07:48 | Anesthesiology Progress Note ---
Date of Service January 03, 2019 Anesthesia Post Procedure Vital Signs Vital Signs: Temp Pulse Pulse Pulse Resp BP Pulse Ox 01/03/19 07:42 36.5 C 70 20 164/70 H 95 01/03/19 03:10 36.6 C 69 14 103/65 94 01/02/19 23:14 36.4 C L 58 L 14 103/64 90 01/02/19 19:34 36.4 C L 80 16 94/55 L 95 01/02/19 15:58 37.6 C H 107 H 16 132/75 94 01/02/19 15:45 36.4 C L 92 H 16 101/65 97 01/02/19 14:30 101 H 18 104/66 94 01/02/19 13:35 96 H 18 105/63 97 01/02/19 12:35 36.5 C 89 18 96/63 L 98 01/02/19 12:15 84 18 98/55 L 97 01/02/19 12:05 81 16 106/56 L 98 01/02/19 11:55 85 17 93/57 L 96 01/02/19 11:45 82 17 101/47 L 97 01/02/19 11:43 36.4 C L 01/02/19 11:35 81 13 102/48 L 97 01/02/19 11:25 85 16 108/56 L 99 01/02/19 11:15 83 16 110/44 L 100 01/02/19 11:05 84 19 93/50 L 100 01/02/19 10:56 36.6 C 100 H 16 89/57 L 96 Pain Intensity Right Knee: Pain Intensity: 3 Notes Mental Status: alert / awake / arousable and participated in evaluation Nausea / Vomiting: adequately controlled Pain: adequately controlled Airway Patency, RR, SpO2: stable & adequate BP & HR: stable & adequate Hydration State: stable & adequate
[2019-01-03] MEDS: ASPIRIN 81 MG ECTAB PO SCH (08:10)
[2019-01-03] MEDS: DOCUSATE SODIUM 100 MG CAP PO SCH (08:10)
[2019-01-03] MEDS ORDERED: VENLAFAXINE HCL XR 150 MG CAPXR PO SCH (09:00)
[2019-01-03] MEDS ORDERED: MULTIVITAMIN TAB PO SCH ×2 (09:00)
[2019-01-03] MEDS ORDERED: ESTRADIOL 1 MG TAB PO SCH (09:00)
--- NOTE | 2019-01-07 04:46 | Discharge Summary ---
DISCHARGE DIAGNOSIS: Degenerative joint disease, right knee. SECONDARY DIAGNOSES: Anxiety, chronic kidney disease stage III, depression, hyperlipidemia, hypothyroidism, obesity, osteoarthritis. CONSULTS: None. COMPLICATIONS: None. PROCEDURES: Right total knee arthroplasty performed by Dr. Howard on 01/02/2019. BRIEF HISTORY: As dictated in the history and physical. HOSPITAL SUMMARY: The patient was admitted on the above date and had the above-noted surgery performed, which she tolerated well. On the first postoperative day, patient was doing well that morning and did have some pain but was well controlled. She had no other complaints and was hoping to go home. Vital signs were stable. She was afebrile. Dressings clean, dry and intact. Hemovac was placed. Toes were mobile. No calf tenderness. Sensation and neurovascularly status was intact. The patient was started on physical therapy protocol and continued on DVT prophylaxis and pain management and progressed with her physical therapy to the point where she was felt that she could be discharged to home on 01/03/2019. For further review, please see chart. LABORATORY AND X-RAY DATA: As per chart. DISCHARGE INSTRUCTIONS: The patient was discharged to home in satisfactory condition with self-care for outpatient PT. DIET: Regular. ACTIVITY: Weightbearing as tolerated on right lower extremity. Follow TK instruction sheets and special care instructions as noted. Follow up with Dr. Howard in 2 weeks. The patient to call for appointment if one has made for you. DISCHARGE MEDICATIONS: Acetaminophen 1000 mg p.o. q. 8 hours, aspirin 81 mg p.o. b.i.d., Celebrex 200 mg p.o. b.i.d., oxycodone 5-10 mg p.o. q. 4-6 hours p.r.n. Resume home meds as listed.
== END 2019-01-03 14:05 | disposition home or self-care (01) | DRG 470 ==
LOC: ASU 06:42 → 3E 11:11